=== PATIENT | female | born 1945 | race Two or more races ===

== ENCOUNTER → 2020-05-25 | Outpatient (CLI) | payer OTHER | END | disposition home or self-care (01) | LOC: OFIC 805 12:30 | PROVIDERS: ATTEND Otolaryngology | DX: H81.11 Benign paroxysmal vertigo, right ear (principal) ==

== ENCOUNTER 2020-07-06 10:54 | Outpatient (CLI) | payer OTHER | END 2020-07-06 11:20 | disposition home or self-care (01) | LOC: OFIC 805 10:54 | PROVIDERS: ATTEND Otolaryngology | DX: H90.42 Sensorineural hearing loss, unilateral, left ear, with unrestricted hearing on the contralateral side (principal) ==

== ENCOUNTER 2024-04-22 07:57 | Outpatient (CLI) | payer OTHER | END 2024-04-22 07:58 | disposition home or self-care (01) | LOC: NUCLEAR 07:57 | DX: G30.9 Alzheimer's disease, unspecified (principal) | CPT/HCPCS: 78608; A9552 ==